=== PATIENT | male | born 1960 | race Caucasian/White ===

== ENCOUNTER 2018-09-28 05:42 | Emergency (ER) | payer MEDICARE, MEDICAID ==
--- NOTE | 2018-09-28 06:29 | ER Document Report ---
ED Foreign Body - General Chief Complaint: Foreign Body Stated Complaint: UNABLE TO URINATE Time Seen by Provider: 09/28/18 06:21 TRAVEL OUTSIDE OF THE [place] IN LAST 30 DAYS: No - HPI Notes: Patient is a 58-year-old male that presents to the emergency department for chief complaint of foreign body in his penis. Patient states about 1-1/2 hours prior to presentation he inserted a silicone dulce into his penis to self pleasure. He states it is about 7 inches long. He feels the dulce is at the level of his prostate currently. He denies any pain or discharge from his penis but states he is having some suprapubic discomfort and feels the need to urinate but cannot. He denies any associated nausea or vo miting. Past Medical History: HIV, diabetes, hypertension, hyperlipidemia Past Surgical History: Negative Social History: Denies drugs alcohol and tobacco Family History: Reviewed and noncontributory for presenting illness Allergies: Reviewed, see documented allergy list. REVIEW OF SYSTEMS: CONSTITUTIONAL : No fever No chills No diaphoresis No recent illness EENT: No vision changes No congestion No sore throat CARDIOVASCULAR: No chest pain No palpitations RESPIRATORY: No shortness of breath No cough No difficulty breathing GASTROINTESTINAL: abdominal pain No nausea No vomiting No diarrhea GENITOURINARY: No dysuria No hematuria difficulty urinating MUSCULOSKELETAL: No back pain No leg pain No arm pain SKIN: No rashes No lesions LYMPHATIC: No swollen, enlarged glands. NEUROLOGICAL: No lightheadedness No headache No weakness No paresthesias PSYCHIATRIC: No anxiety No depression PHYSICAL EXAMINATION: Vital signs reviewed, nursing noted reviewed. GENERAL: Well-appearing, well-nourished and in no acute distress. HEAD: Atraumatic, normocephalic. EYES: Eyes appear normal, extraocular movements intact, sclera anicteric, conjun ctiva are normal. ENT: nares patent, oropharynx clear without exudates. Moist mucous membranes. NECK: Normal range of motion, supple without lymphadenopathy LUNGS: Breath sounds clear to auscultation bilaterally and equal. No wheezes rales or rhonchi. HEART: Regular rate and rhythm without murmurs ABDOMEN: Soft, mild suprapubic tenderness,, normoactive bowel sounds. No rebound, guarding, or rigidity. No masses appreciated. : No penile discharge or palpable foreign body in penis, no scrotal edema, erythema or testicular tenderness. EXTREMITIES: Nontender, good range of motion, no pitting or edema. NEUROLOGICAL: No focal neurological deficits. Moves all extremities spontaneousl y Motor and sensory grossly intact on exam. PSYCH: Normal mood, normal affect. SKIN: Warm, Dry, normal turgor, no rashes or lesions noted on exposed skin - Related Data Allergies/Adverse Reactions: No Known Allergies Allergy (Unverified 09/28/18 05:54) Past Medical History - Social History Smoking Status: Never Smoker Family History: Reviewed & Not Pertinent Physical Exam - Vital signs Vitals: Temp Pulse Resp BP Pulse Ox 97.7 F 120 H 20 155/71 H 98 09/28/18 05:53 09/28/18 05:53 09/28/18 05:53 09/28/18 05:53 09/28/18 05:53 Course - Re-evaluation Re-evalutation: 09/28/18 06:29 Vitals reviewed. Nursing notes reviewed. I am unable to palpate the foreign body to even attempt removal. Patient does have suprapubic tenderness and is unable to void. I have contacted [facility] for emergent urologic services. 09/28/18 07:25 Bedside ultrasound shows greater than 800 mL's retained in patient's bladder. His lab work shows only slight elevation of BUN with normal creatinine. Pelvic x-ray does not visualize the foreign body. I did discuss his care with Dr. Meza who evaluated him in the ER for possible suprapubic catheter versus percutaneous drainage if transportation is going to be delayed given current poor weather conditions. Patient has been accepted to [facility] under the care of the urologist Dr. Persaud who will evaluate him in the emergency room to determine whether he is requiring OR intervention. Laboratory 09/28/18 09/28/18 06:35 06:35 WBC 7.4 RBC 5.30 Hgb 15.8 Hct 46.9 MCV 89 MCH 29.9 MCHC 33.7 RDW 13.8 Plt Count 241 Seg Neutrophils % 64.4 Lymphocytes % 26.0 Monocytes % 7.6 Eosinophils % 1.2 Basophils % 0.8 Absolute Neutrophils 4.8 Absolute Lymphocytes 1.9 Absolute Monocytes 0.6 Absolute Eosinophils 0.1 Absolute Basophils 0.1 Sodium 136.3 L Potassium 4.1 Chloride 101 Carbon Dioxide 27 Anion Gap 8 BUN 21 H Creatinine 1.06 Est GFR ( Amer) > 60 Est GFR (Non-Af Amer) > 60 Glucose 154 H Calcium 9.8 - Vital Signs Vital signs: Temp Pulse Resp BP Pulse Ox 97.7 F 120 H 20 155/71 H 98 09/28/18 05:53 09/28/18 05:53 09/28/18 05:53 09/28/18 05:53 09/28/18 05:53 - Laboratory Result Diagrams: 09/28/18 06:35 09/28/18 06:35 Laboratory results interpreted by me: 09/28/18 06:35 Sodium 136.3 L BUN 21 H Glucose 154 H Discharge - Discharge Clinical Impression: Foreign body in penis Qualifiers: Encounter type: initial encounter Qualified Code(s): T19.4XXA - Foreign body in penis, initial encounter Condition: Stable Disposition: [facility]
[2018-09-28 06:41] LABS: ABSOLUTE BASOPHILS # (AUTO) 0.1 10^3/uL (0.0-0.2); ABSOLUTE EOSINOPHILS # (AUTO) 0.1 10^3/uL (0.0-0.6); ABSOLUTE LYMPHOCYTES (AUTO) 1.9 10^3/uL (0.5-4.7); ABSOLUTE MONOCYTES (AUTO) 0.6 10^3/uL (0.1-1.4); ABSOLUTE NEUT (AUTO) 4.8 10^3/uL (1.7-8.2); BASOPHILS % (AUTO) 0.8 % (0-2); EOSINOPHILS % (AUTO) 1.2 % (0-6); HEMATOCRIT 46.9 % (37.9-51.0); HEMOGLOBIN 15.8 g/dL (13.5-17.0); MEAN CORPUSCULAR HEMOGLOBIN 29.9 pg (27.0-33.4); MEAN CORPUSCULAR HGB CONC 33.7 g/dL (32.0-36.0); MEAN CORPUSCULAR VOLUME 89 fl (80-97); MONOCYTES % (AUTO) 7.6 % (3-13); PLATELET COUNT 241 10^3/uL (150-450); RED CELL DISTRIBUTION WIDTH 13.8 % (11.5-14.0); SEGMENTED NEUTROPHILS % (AUTO) 64.4 % (42-78); TOTAL CELLS COUNTED % (AUTO) 100 %; WHITE BLOOD COUNT 7.4 10^3/uL (4.0-10.5)
[2018-09-28 06:59] LABS: ANION GAP 8 (5-19); BLOOD UREA NITROGEN 21 mg/dL (7-20); CALCIUM 9.8 mg/dL (8.4-10.2); CARBON DIOXIDE 27 mmol/L (22-30); CHLORIDE 101 mmol/L (98-107); GLUCOSE 154 mg/dL (75-110); POTASSIUM 4.1 mmol/L (3.6-5.0); SODIUM 136.3 mmol/L (137-145)
[2018-09-28] MEDS ORDERED: MORPHINE SULFATE 10 MG/ML INJ IV ONE (07:27)
--- NOTE | 2018-09-28 07:56 | RADIOLOGY REPORT (SQ) ---
EXAM: X-ray pelvis 1-2 views CLINICAL DATA: 58-year-old male with suspected foreign body in urethra TECHNICAL DATA: Two x-ray views of the pelvis were performed on 09/28/2018 at 7:17 AM. COMPARISONS: None FINDINGS: There is no evidence of acute fracture or dislocation. There is mild narrowing of the hip joints. Small subchondral cystic changes are noted along the superior lateral acetabula. The sacroiliac joints and pubic symphysis are intact. Bone mineralization is normal. There is a questionable curvilinear radiopaque density within the soft tissues inferior to the pubic symphysis in the midline. IMPRESSION: 1. No evidence of acute osseous abnormality. 2. 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 3. Questionable curvilinear radiopaque density projecting within the soft tissues just inferior to the pubic symphysis in the midline. This is not clearly demonstrated on the lateral projection.
[2018-09-28 08:10] VITALS: BP 140/74
== END 2018-09-28 08:30 | disposition short-term general hospital (02) ==
LOC: ER 05:42
DX: T19.4XXA Foreign body in penis, initial encounter (principal); R10.30 Lower abdominal pain, unspecified; X58.XXXA Exposure to other specified factors, initial encounter; B20 Human immunodeficiency virus [HIV] disease; E11.9 Type 2 diabetes mellitus without complications; I10 Essential (primary) hypertension
CPT/HCPCS: 99285; 96374; 36415; 85025; 80048; 72170; J2270